=== PATIENT | male | born 1960 | race Caucasian/White ===

== ENCOUNTER 2017-01-01 09:19 | Inpatient (IN) ==
--- NOTE | 2017-01-01 09:43 | Emergency Department Note ---
Disposition Clinical Impression: Rectal bleeding Abdominal pain Qualifiers: Abdominal location: unspecified location Qualified Code(s): R10.9 - Unspecified abdominal pain Disposition: Admitted As Inpatient Condition: Fair Referrals: NONE,PCP [Non-Partnered Physician] - Forms: Work/School Release, ED Satisfaction Letter Time of Disposition: 11:12 Abdominal Pain HPI - General Chief Complaint: ED Abdominal Pain Stated Complaint: Abd Pain N/V/D Rectal Bleeding Time Seen by Provider: 01/01/17 09:27 Source: patient Mode of arrival: ambulatory Limitations: no limitations, age Nursing Notes Reviewed: Yes Vital Signs Reviewed: Yes - History of Present Illness HPI Narrative: 56-year-old male who comes in complaining of crampy lower abdominal pain and bright red blood per rectum. Patient states he had a hard stool last night and following that the stool softened up and he had a large amount of blood. He has no previous history of rectal bleeding. Patient did have a colonoscopy about 4-1 /2 years ago that he reports was negative. He did vomit one time states she doesn't think there was blood in it. Denies dizziness or lightheadedness. Pt Subjective Complaint: abdominal pain Onset (ago): day(s) Consistency: constant Location: diffuse Pain Scale: 8 Quality: cramping Radiation: none Migration to: no migration Improves with: nothing Worsens with: nothing Associated symptoms: Reports: nausea Treatments prior to arrival: none - Related Data Home Medications Medication Instructions Recorded Confirmed Lisinopril [Zestril] 10 mg PO DAILY 01/24/15 01/01/17 Allergies Allergy/AdvReac Type Severity Reaction Status Date / Time No Known Allergies Allergy Verified 01/01/17 09:21 All systems ED: reviewed and negative except as stated. Constitutional: Denies: fever, chills, weakness, weight change Eyes: Denies: eye pain, eye discharge, vision change ENT ED: Denies: ear pain, throat pain, dental pain, hearing loss, epistaxis, congestion, dysphagia Cardiovascular: Denies: chest pain, palpitations, dyspnea on exertion, edema, syncope Respiratory: Denies: cough, dyspnea, wheezes, hemoptysis, stridor Gastrointestinal: Reports: abdominal pain. Denies: nausea, vomiting, diarrhea, constipation, hematemesis, melena, hematochezia Genitourinary: Denies: urgency, dysuria, frequency, hematuria Musculoskeletal: Denies: back pain, neck pain, arthralgia, myalgia Integumentary: Denies: rash, abrasion, lesions Neurological: Denies: headache, weakness, numbness, paresthesias, confusion, abnormal gait, vertigo Psychiatric: Denies: anxiety, depression, suicidal thoughts, homicidal thoughts , auditory hallucinations, visual hallucinations Endocrine: Denies: fatigue Hematological/Lymphatic: Denies: easy bleeding, easy bruising Allergic/Immunologic: Denies: facial swelling, urticaria Abdominal Pain PMH - Past Medical History Medical history: Reports: hypertension Male Surgical History: Reports: other Psychiatric history: Reports: no psych history - Social History Smoking status: Never smoker Alcohol use: Reports: occasionally Drug use: Reports: none Physical Exam - General Limitations: no limitations General appearance: alert - Head Head exam: atraumatic, normocephalic, normal inspection - Eye Eye exam: Present: normal appearance, PERRL, EOMI - ENT ENT exam: normal exam, normal oropharynx, mucous membranes moist - Neck Neck exam: Present: normal inspection, full ROM, trachea midline - Chest Chest inspection: Present: normal inspection, symmetric chest wall rise - Respiratory Respiratory exam: Present: normal lung sounds bilaterally - Cardiovascular Cardiovascular exam: Present: regular rate, normal rhythm, normal heart sounds - Abdominal Exam Abdominal exam: Present: soft, Non-Tender. Absent: tenderness, distention, guarding, rebound, rigidity - Rectal Exam Research Attorney present during exam: Yes Rectal exam: Present: bloody stool - Extremities Exam Extremities exam: Present: normal inspection, full ROM. Absent: tenderness, pedal edema - Expanded Lower Extremity Exam Neurovascular/Tendon exam: Absent: motor deficit, sensory deficit, tendon deficit Gait: observed and normal - Back Exam Back exam: Present: normal inspection, full ROM. Absent: tenderness - Neurological Exam Neurological exam: Present: alert, oriented X3 - Psychiatric Psychiatric exam: Present: normal affect, normal mood - Skin Skin exam: Present: warm, dry, intact, normal color Course - Reevaluation(s) Reevaluation #1: 56-year-old male who comes in with the onset of abdominal pain yesterday with gross blood on several bowel movements since. He should states pain is fairly severe. Workup hemoglobin looks okay rectal exam did show gross blood CT of the abdomen was negative for acute findings. In light of patient's severe pain with fairly large bloody bowel movement warm and go ahead and admit. Time: 10:37 - Consultations Consultation #1: Discussed with Dr. Limon, admit Time: 11:10 Vital Signs Temperature 98.3 F 01/01/17 09:21 Pulse Rate 50 01/01/17 09:21 Respiratory Rate 20 01/01/17 09:21 Blood Pressure 175/83 01/01/17 09:21 O2 Sat by Pulse Oximetry 97 01/01/17 09:21 Temperature 98.3 F 01/01/17 09:21 Pulse Rate 51 01/01/17 10:25 Respiratory Rate 16 01/01/17 10:25 Blood Pressure 170/94 01/01/17 10:25 O2 Sat by Pulse Oximetry 98 01/01/17 10:25 Oxygen Delivery Oxygen Delivery Room Air Abdominal Pain - Lab Data Lab results reviewed: Yes I reviewed the patient's lab results. Result diagrams: 01/01/17 09:35 01/01/17 09:35 Lab Results 01/01/17 01/01/17 01/01/17 Range/Units 09:35 09:35 09:35 WBC 11.8 H (4.3-11.1) K/mcL RBC 6.03 H (4.19-5.50) M/mcL Hgb 16.2 (12.9-16.9) g/dL Hct 49.0 (37.5-50.1) % MCV 81.3 L (83.0-100.0) fL MCH 26.9 L (28.0-33.3) pg MCHC 33.1 (31.6-35.5) g/dL RDW 14.6 H (11.5-14.5) % Plt Count 197 (140-400) K/mcL MPV 10.6 (9.4-12.4) fL Immature Gran % 0.3 (0-4) % Seg Neutrophils % 84.0 % Lymphocytes % 8.8 % Monocytes % 6.3 % Eosinophils % 0.3 % Basophils % 0.3 % Neutrophils # 9.9 H (1.6-8.9) K/mcL Lymphocytes # 1.0 (0.6-4.6) K/mcL Monocytes # 0.7 (0.0-1.3) K/mcL Eosinophils # 0.0 (0.0-0.6) K/mcL Basophils # 0.0 (0.0-0.2) K/mcL PT 11.2 (9.4-12.1) Seconds INR 1.0 APTT 28.9 (26.0-36.0) Seconds Sodium 139 (136-145) mEq/L Potassium 4.5 (3.5-4.5) mEq/L Chloride 106 (98-109) mEq/L Carbon Dioxide 26 (19-29) mEq/L BUN 18 (8-26) mg/dL Creatinine 1.05 (0.72-1.25) mg/dL Est GFR ( Amer) > 60 (> 60) Est GFR (Non-Af Amer) > 60 (> 60) BUN/Creatinine Ratio 17 (6-26) Glucose 133 H (70-99) mg/dL Calculated Osmolality 292 (280-300) Calcium 9.8 (8.6-10.8) mg/dL Total Bilirubin 0.9 (0.2-1.2) mg/dL Direct Bilirubin 0.3 (0.0-0.5) mg/dL Indirect Bilirubin 0.6 (0.0-1.2) mg/dL AST 24 (5-34) Units/L ALT 29 (0-55) Units/L Alkaline Phosphatase 76 (38-126) Units/L Troponin I (0-0.03) ng/mL Serum Total Protein 8.1 (6.0-8.3) g/dL Albumin 4.4 (3.5-5.0) g/dL Globulin 3.7 H (2.4-3.5) g/dL Albumin/Globulin Ratio 1.2 (1.1-2.2) Amylase 48 (25-125) Units/L Lipase < 10 (8-78) Units/L Urine Color (Yellow) Urine Clarity (Clear) Urine pH (5.0-8.0) pH Units Ur Specific [place] (1.010-1.025) Urine Protein (Neg-Trace) mg/dL Urine Glucose (UA) (Normal) mg/dL Urine Ketones (Negative) mg/dL Urine Blood (Negative) Urine Nitrite (Negative) Urine Bilirubin (Negative) Urine Urobilinogen (Normal) mg/dL Ur Leukocyte Esterase (Negative) Ur Culture Indicated? (NO) Stool Occult Blood (Negative) Blood Type Antibody Screen 01/01/17 01/01/17 01/01/17 Range/Units 09:35 09:40 10:03 WBC (4.3-11.1) K/mcL RBC (4.19-5.50) M/mcL Hgb (12.9-16.9) g/dL Hct (37.5-50.1) % MCV (83.0-100.0) fL MCH (28.0-33.3) pg MCHC (31.6-35.5) g/dL RDW (11.5-14.5) % Plt Count (140-400) K/mcL MPV (9.4-12.4) fL Immature Gran % (0-4) % Seg Neutrophils % % Lymphocytes % % Monocytes % % Eosinophils % % Basophils % % Neutrophils # (1.6-8.9) K/mcL Lymphocytes # (0.6-4.6) K/mcL Monocytes # (0.0-1.3) K/mcL Eosinophils # (0.0-0.6) K/mcL Basophils # (0.0-0.2) K/mcL PT (9.4-12.1) Seconds INR APTT (26.0-36.0) Seconds Sodium (136-145) mEq/L Potassium (3.5-4.5) mEq/L Chloride (98-109) mEq/L Carbon Dioxide (19-29) mEq/L BUN (8-26) mg/dL Creatinine (0.72-1.25) mg/dL Est GFR ( Amer) (> 60) Est GFR (Non-Af Amer) (> 60) BUN/Creatinine Ratio (6-26) Glucose (70-99) mg/dL Calculated Osmolality (280-300) Calcium (8.6-10.8) mg/dL Total Bilirubin (0.2-1.2) mg/dL Direct Bilirubin (0.0-0.5) mg/dL Indirect Bilirubin (0.0-1.2) mg/dL AST (5-34) Units/L ALT (0-55) Units/L Alkaline Phosphatase (38-126) Units/L Troponin I 0.01 (0-0.03) ng/mL Serum Total Protein (6.0-8.3) g/dL Albumin (3.5-5.0) g/dL Globulin (2.4-3.5) g/dL Albumin/Globulin Ratio (1.1-2.2) Amylase (25-125) Units/L Lipase (8-78) Units/L Urine Color Yellow (Yellow) Urine Clarity Clear (Clear) Urine pH 5.5 (5.0-8.0) pH Units Ur Specific [place] 1.026 H (1.010-1.025) Urine Protein Negative (Neg-Trace) mg/dL Urine Glucose (UA) Normal (Normal) mg/dL Urine Ketones Negative (Negative) mg/dL Urine Blood Negative (Negative) Urine Nitrite Negative (Negative) Urine Bilirubin Negative (Negative) Urine Urobilinogen Normal (Normal) mg/dL Ur Leukocyte Esterase Negative (Negative) Ur Culture Indicated? NO (NO) Stool Occult Blood Positive A (Negative) Blood Type Antibody Screen 01/01/17 Range/Units 10:20 WBC (4.3-11.1) K/mcL RBC (4.19-5.50) M/mcL Hgb (12.9-16.9) g/dL Hct (37.5-50.1) % MCV (83.0-100.0) fL MCH (28.0-33.3) pg MCHC (31.6-35.5) g/dL RDW (11.5-14.5) % Plt Count (140-400) K/mcL MPV (9.4-12.4) fL Immature Gran % (0-4) % Seg Neutrophils % % Lymphocytes % % Monocytes % % Eosinophils % % Basophils % % Neutrophils # (1.6-8.9) K/mcL Lymphocytes # (0.6-4.6) K/mcL Monocytes # (0.0-1.3) K/mcL Eosinophils # (0.0-0.6) K/mcL Basophils # (0.0-0.2) K/mcL PT (9.4-12.1) Seconds INR APTT (26.0-36.0) Seconds Sodium (136-145) mEq/L Potassium (3.5-4.5) mEq/L Chloride (98-109) mEq/L Carbon Dioxide (19-29) mEq/L BUN (8-26) mg/dL Creatinine (0.72-1.25) mg/dL Est GFR ( Amer) (> 60) Est GFR (Non-Af Amer) (> 60) BUN/Creatinine Ratio (6-26) Glucose (70-99) mg/dL Calculated Osmolality (280-300) Calcium (8.6-10.8) mg/dL Total Bilirubin (0.2-1.2) mg/dL Direct Bilirubin (0.0-0.5) mg/dL Indirect Bilirubin (0.0-1.2) mg/dL AST (5-34) Units/L ALT (0-55) Units/L Alkaline Phosphatase (38-126) Units/L Troponin I (0-0.03) ng/mL Serum Total Protein (6.0-8.3) g/dL Albumin (3.5-5.0) g/dL Globulin (2.4-3.5) g/dL Albumin/Globulin Ratio (1.1-2.2) Amylase (25-125) Units/L Lipase (8-78) Units/L Urine Color (Yellow) Urine Clarity (Clear) Urine pH (5.0-8.0) pH Units Ur Specific [place] (1.010-1.025) Urine Protein (Neg-Trace) mg/dL Urine Glucose (UA) (Normal) mg/dL Urine Ketones (Negative) mg/dL Urine Blood (Negative) Urine Nitrite (Negative) Urine Bilirubin (Negative) Urine Urobilinogen (Normal) mg/dL Ur Leukocyte Esterase (Negative) Ur Culture Indicated? (NO) Stool Occult Blood (Negative) Blood Type O POSITIVE Antibody Screen NEGATIVE - Radiology Data Radiology results reviewed: Yes I reviewed the patient's radiology results. Abdomen/Pelvis CT 01/01/17 09:28 IMPRESSION: 1. No acute abnormality within the abdomen and pelvis. D/ / Wang Issa MD / Wnag Issa MD Interpreting Provider: Wang Issa MD - EKG Data EKG attestation: Yes I reviewed and interpreted this EKG. EKG shows normal: sinus rhythm Rate: bradycardia Rhythm: NSR Interpretation: no acute changes
[2017-01-01 09:46] LABS: Basophils % 0.3 %; Eosinophils % 0.3 %; Hemoglobin 16.2 g/dL (12.9-16.9); Immature Granulocytes % 0.3 % (0-4); Lymphocytes % 8.8 %; Mean Corpuscular HGB Conc 33.1 g/dL (31.6-35.5); Mean Corpuscular Hemoglobin 26.9 pg (28.0-33.3); Mean Corpuscular Volume 81.3 fL (83.0-100.0); Mean Platelet Volume 10.6 fL (9.4-12.4); Monocytes # 0.7 K/mcL (0.0-1.3); Monocytes % 6.3 %; Neutrophils # 9.9 K/mcL (1.6-8.9); Platelet Count 197 K/mcL (140-400); Red Blood Count 6.03 M/mcL (4.19-5.50); Red Cell Distribution Width 14.6 % (11.5-14.5)
[2017-01-01 10:01] LABS: Alanine Aminotransferase 29 Units/L (0-55); Albumin 4.4 g/dL (3.5-5.0); Albumin/Globulin Ratio 1.2 (1.1-2.2); Alkaline Phosphatase 76 Units/L (38-126); Amylase 48 Units/L (25-125); Aspartate Amino Transferase 24 Units/L (5-34); BUN/Creatinine Ratio 17 (6-26); Bilirubin,Direct 0.3 mg/dL (0.0-0.5); Bilirubin,Indirect 0.6 mg/dL (0.0-1.2); Bilirubin,Total 0.9 mg/dL (0.2-1.2); Blood Urea Nitrogen 18 mg/dL (8-26); Calcium 9.8 mg/dL (8.6-10.8); Carbon Dioxide 26 mEq/L (19-29); Chloride 106 mEq/L (98-109); Globulin 3.7 g/dL (2.4-3.5); Glucose 133 mg/dL (70-99); Lipase < 10 Units/L (8-78); Osmolality,Calculated 292 (280-300); Potassium 4.5 mEq/L (3.5-4.5); Sodium 139 mEq/L (136-145); Total Protein 8.1 g/dL (6.0-8.3); eGFR For African Americans > 60 (> 60); eGFR For Non-African Americans > 60 (> 60)
[2017-01-01 10:02] LABS: Prothrombin Time 11.2 Seconds (9.4-12.1)
[2017-01-01 10:05] LABS: Activated Partial Thrombo Time 28.9 Seconds (26.0-36.0)
[2017-01-01 10:23] LABS: Bilirubin,Urine Negative (Negative); Blood,Urine Negative (Negative); Clarity,Urine Clear (Clear); Color,Urine Yellow (Yellow); Glucose,Urine (UA) Normal (Normal); Ketones,Urine Negative (Negative); Leukocyte Esterase,Urine Negative (Negative); Nitrite,Urine Negative (Negative); PH,Urine 5.5 pH Units (5.0-8.0); Protein,Urine Negative (Neg-Trace); Specific Gravity,Urine 1.026 (1.010-1.025); Urobilinogen,Urine Normal (Normal)
[2017-01-01] MEDS ORDERED: *HR* HYDROmorphone (PF) 1 MG/ML SYRINGE IVP ONE (10:36)
[2017-01-01] MEDS ORDERED: Pantoprazole 40 MG VIAL IVP ONE (10:36)
[2017-01-01] MEDS ORDERED: Ondansetron 4 MG/2 ML VIAL IVP ONE (10:36)
[2017-01-01] MEDS ORDERED: Naloxone 0.4 MG/ML INJ IVP PRN (12:37)
--- NOTE | 2017-01-01 12:46 | Internal Med History&Physical ---
Date of Encounter: 01/01/17 Time of Encounter: 12:00 Assessment and Plan (1) Abdominal pain Current visit: Yes Status: Acute No evidence of acute colitis on CAT scan. I do not see an indication for acute antibiotics. I do wonder if patient may have underlying inflammatory bowel disease based on the chronicity of his intermittent symptoms. We will await GI evaluation. Qualifiers: Abdominal location: unspecified location Qualified Code(s): R10.9 - Unspecified abdominal pain (2) Lower GI bleed Current visit: Yes Status: Acute Primary differential to be ischemic colitis. I do not suspect infection. As mentioned above, may have a chronic inflammatory bowel disease as well. We will await GI evaluation. Patient's hemoglobin is stable. We will continue to monitor frequently. (3) Hypertension Current visit: Yes Status: Acute Qualifiers: Hypertension type: essential hypertension Qualified Code(s): I10 - Essential (primary) hypertension (4) Hypertension Current visit: Yes Status: Acute On lisinopril. Use IV hydralazine when necessary, while nothing by mouth. Qualifiers: Hypertension type: essential hypertension Qualified Code(s): I10 - Essential (primary) hypertension Internal Medicine - H&P: HPI Admitted From: Emergency Dept Plans for Post Hospital Care: Home History of present illness: Mr. Rios is a 56 year old male with a past medical history only significant for hypertension. He was in his usual state of health when he awoke around midnight last night complaining of severe 8-9 out of 10 mid abdominal cramping pain. The pain has remained somewhat of a constant ache now, but waxes and wanes in severity. He said he went to the bathroom and vomited food times one, then had a few hard bowel movements followed by 2 numerous to count liquid stools, with bright red blood. He has never had similar blood in his stool. He does have a history of periodic abdominal cramps occurring almost on a monthly basis but never to this severity and they usually resolve on her own. Patient denies any fevers or chills. No recent travel. No ill contacts. No new medications. He does not use NSAIDs but occasionally will take an Excedrin. He had a colonoscopy at age 17 but has not had one since. In the emergency room he was hemodynamically stable mildly hypertensive with a blood pressure 175/83. On exam he appeared uncomfortable with hands over his mid abdomen. He otherwise was mildly diaphoretic but was stable. Labs showed a white count of 11.8, hemoglobin 16.2. INR was normal at 1.0. BUN/creatinine and creatinine of [address] abdomen and pelvis with IV contrast scan was negative for acute process. Patient was admitted for further workup of lower GI bleeding. Past Med Surg Social Fam HX - Past Medical History Medical history: hypertension Psychiatric history: no psych history - Past Surgical History Surgical History: non-contributory, arthroscopy - Social History Smoking Status: Never smoker Smokeless Tobacco Status: No Alcohol use: occasionally Drug use: none Occupational status: employed Current living situation: Home - Independent Activity Level: Independent ambulation Recent Out of Country Travel Within the Last 8 Weeks: No Exposure or Possible Exposure to Illness During Travel: No Internal Medicine - H&P: Meds Lisinopril [Zestril] 10 mg PO DAILY 01/24/15 [History] 3 Allergy/AdvReac Type Severity Reaction Status Date / Time No Known Allergies Allergy Verified 01/01/17 09:21 All Systems PM: A 10-system review of systems was performed and is negative for pertinent findings except as documented above in the HPI. - Constitutional Vitals: Temp Pulse Resp BP Pulse Ox 98.3 F 51 16 151/92 98 01/01/17 09:21 01/01/17 10:25 01/01/17 12:16 01/01/17 12:16 01/01/17 10:25 General appearance: Present: mild distress, A&O X 3, pleasant - Head Head exam: Present: atraumatic, normocephalic - Eye Eye exam: Present: PERRL, conjuntiva pink, sclera anicteric Pupils: Present: PERRL - Neck Neck exam general surgery: Present: supple, trachea midline. Absent: lymphadenopathy - Respiratory Respiratory exam: Present: CTAB. Absent: accessory muscle use, rales, rhonchi, wheezes - Cardiovascular Cardiovascular exam: Present: RRR, +S1, +S2. Absent: diastolic murmur, gallop, rubs, systolic murmur - GI/Abdominal GI/Abdominal exam: Present: normal bowel sounds, soft, tenderness (Diffuse Tenderness in the mid abdomen. No rebound or guarding.), no peritoneal signs. Absent: distended - Extremities Exam Extremities exam: Present: warm, radial pulses palpable and symmetrical. Absent : calf tenderness, cyanotic, pedal edema - Neurological Exam Neurological exam: Present: CN II-XII intact, oriented X3, no focal deficits. Absent: pronater drift, facial droop, speech deficit - Skin Skin exam: Present: dry, intact Internal Med - H&P Results - Labs CBC & Chem 7: 01/01/17 09:35 01/01/17 09:35 - VTE Reasons for not Prescribing Prophylaxis: Treatment not Indicated - Low risk for VTE
[2017-01-01] MEDS: 0.9 % Sodium Chloride 1,000 ML IVC SCH ×2 (13:14→23:00)
[2017-01-01] MEDS: *HR* HYDROmorphone (PF) 1 MG/ML SYRINGE IVP PRN ×3 (13:15→23:39)
--- NOTE | 2017-01-01 15:07 | Gastroenterology Consult Note ---
<Yvette Small - Last Filed: 01/01/17 16:12> Date of Encounter: 01/01/17 Time of Encounter: 15:04 - Assessment and plan (1) Abdominal pain Current Visit: Yes Status: Acute Assessment and plan: CT abdomen/pelvis showed no acute abnormality. patient admits to one episode of diarrhea since yesterday. no recent travel or antibiotic use. likely ischemic colitis based on history. Plan: continue with supportive care. GI panel to rule out infectious causes. IVF pain control recommend empiric antibiotic treatment. outpatient colonoscopy in 6-8 weeks. Qualifiers: Abdominal location: unspecified location Qualified Code(s): R10.9 - Unspecified abdominal pain - Time Spent With Patient Total time spent is greater than 50% in coordination of care (as documented) at patient's floor/unit and/or counseling patient: GI History of Present Illness - Data of Consult Consult date: 01/01/17 Requesting Physician: Jessi Andrews MD - Consult Narrative Reason for consult: possible GI bleed. History of present illness: Mr. Rios is a 56 year old male with PMHx of HTN. patient arrived with CC of severe abdominal cramping and pain that woke him up at night. Pain is- 8-9/10 and waxes and wanes. He had one episode of vomiting, but cannot recall if there was blood in his vomit. He had multiple episodes of bright red blood in his stool since last night, and this happened every time he had a bowel movement. He denies recent antibiotic use, denies recent recent travel. he admits to chills, denies fever, chest pain, denies shortness of breath, denies dark stools. his last colonoscopy was five years ago. Past Med Surg Social Fam HX - Past Medical History Medical history: hypertension Psychiatric history: no psych history - Past Surgical History Surgical History: non-contributory, arthroscopy - Social History Smoking Status: Never smoker Smokeless Tobacco Status: No Alcohol use: occasionally Drug use: none All systems PM: reviewed and no additional remarkable complaints except as stated - Constitutional Vitals: Temp Pulse Resp BP Pulse Ox 98.3 F 51 16 151/92 98 01/01/17 09:21 01/01/17 10:25 01/01/17 12:16 01/01/17 12:16 01/01/17 10:25 - Head Head exam: Present: atraumatic, normocephalic - Neck Neck exam general surgery: Present: supple, trachea midline - Respiratory Respiratory exam: Present: CTAB - Cardiovascular Cardiovascular exam: Present: RRR, +S1, +S2 - GI/Abdominal GI/Abdominal exam: Present: normal bowel sounds, soft. Absent: distended, tenderness - Extremities Exam Extremities exam: Absent: cyanotic, pedal edema - Neurological Exam Neurological exam: Present: alert, oriented X3, no focal deficits - Skin Skin exam: Present: intact Results - Labs CBC & Chem 7: 01/01/17 09:35 01/01/17 09:35 Labs: Last Result Calcium 9.8 mg/dL (8.6-10.8) 01/01/17 09:35 Troponin I 0.01 ng/mL (0-0.03) 01/01/17 09:35 Stool Occult Blood Positive (Negative) A 01/01/17 09:40 Entire Visit Hgb 16.2 g/dL (12.9-16.9) 01/01/17 09:35 Hct 49.0 % (37.5-50.1) 01/01/17 09:35 PT 11.2 Seconds (9.4-12.1) 01/01/17 09:35 Total Bilirubin 0.9 mg/dL (0.2-1.2) 01/01/17 09:35 AST 24 Units/L (5-34) 01/01/17 09:35 ALT 29 Units/L (0-55) 01/01/17 09:35 Amylase 48 Units/L (25-125) 01/01/17 09:35 Lipase < 10 Units/L (8-78) 01/01/17 09:35 - ABG ABG results: PT/INR, D-dimer PT 11.2 Seconds (9.4-12.1) 01/01/17 09:35 Consult Discharge Plan - Plan Referrals: Parviz Gaviria MD [Primary Care Provider] - <Maricruz Deras - Last Filed: 01/01/17 19:01> Date of Encounter: 01/01/17 Time of Encounter: 18:30 - Time Spent With Patient Total time spent is greater than 50% in coordination of care (as documented) at patient's floor/unit and/or counseling patient: GI History of Present Illness - Data of Consult Requesting Physician: Jessi Andrews MD - Consult Narrative History of present illness: Mr. Rios is a 56 year old male - Constitutional Vitals: Temp Pulse Resp BP Pulse Ox 98.3 F 51 16 151/92 98 01/01/17 09:21 01/01/17 10:25 01/01/17 12:16 01/01/17 12:16 01/01/17 10:25 Results - Labs CBC & Chem 7: 01/01/17 09:35 01/01/17 09:35 Labs: Last Result Calcium 9.8 mg/dL (8.6-10.8) 01/01/17 09:35 Troponin I 0.01 ng/mL (0-0.03) 01/01/17 09:35 Stool Occult Blood Positive (Negative) A 01/01/17 09:40 Entire Visit Hgb 16.2 g/dL (12.9-16.9) 01/01/17 09:35 Hct 49.0 % (37.5-50.1) 01/01/17 09:35 PT 11.2 Seconds (9.4-12.1) 01/01/17 09:35 Total Bilirubin 0.9 mg/dL (0.2-1.2) 01/01/17 09:35 AST 24 Units/L (5-34) 01/01/17 09:35 ALT 29 Units/L (0-55) 01/01/17 09:35 Amylase 48 Units/L (25-125) 01/01/17 09:35 Lipase < 10 Units/L (8-78) 01/01/17 09:35 - ABG ABG results: PT/INR, D-dimer PT 11.2 Seconds (9.4-12.1) 01/01/17 09:35 - Attending Attestation I examined this patient and my medical decision-making was reviewed with the Resident Physician. I agree with the documented findings, disposition and treatment plan as described except to the extent set forth below. Patient with possible ischemic colitis with sudden onset abdominal pain with the bloody bowel movement. Recommendation: IV fluid empiric antibiotics. Stool studies. Colonoscopy in 6-8 weeks as an outpatient
[2017-01-01 19:16] LABS: Hematocrit 44.3 % (37.5-50.1); Hemoglobin 14.8 g/dL (12.9-16.9); Mean Corpuscular HGB Conc 33.4 g/dL (31.6-35.5); Mean Corpuscular Hemoglobin 27.1 pg (28.0-33.3); Mean Corpuscular Volume 81.1 fL (83.0-100.0); Mean Platelet Volume 10.6 fL (9.4-12.4); Platelet Count 190 K/mcL (140-400); Red Blood Count 5.46 M/mcL (4.19-5.50); Red Cell Distribution Width 14.3 % (11.5-14.5)
[2017-01-01 21:41] LABS: Adenovirus F 40/41 PCR Not detected (Not detect); C.difficile Toxin A/B by PCR Not detected (Not detect); Campylobacter by PCR Not detected (Not detect); Cryptosporidium by PCR Not detected (Not detect); Cyclospora cayetanensis PCR Not detected (Not detect); E. coli O157 by PCR Not detected (Not detect); Entamoeba histolytica PCR Not detected (Not detect); Enteroaggregative E.coli(EAEC) Not detected (Not detect); Enteropathogenic E.coli(EPEC) Not detected (Not detect); Enterotoxigenic E.coli (ETEC) Not detected (Not detect); Giardia lamblia PCR Not detected (Not detect); Plesiomonas shigelloides PCR Not detected (Not detect); Salmonella PCR Not detected (Not detect); Shig/EnteroinvasiveE coli EIEC Not detected (Not detect); Shigalike tox-prod E coli STEC Not detected (Not detect); Vibrio PCR Not detected (Not detect); Vibrio cholerae PCR Not detected (Not detect); Yersinia enterocolitica PCR Not detected (Not detect)
[2017-01-01 21:42] LABS: Astrovirus PCR Not detected (Not detect); Norovirus GI/GII PCR Not detected (Not detect); Rotavirus A PCR Not detected (Not detect); Sapovirus PCR Not detected (Not detect)
[2017-01-01] MEDS: Ondansetron 4 MG/2 ML VIAL IVP PRN (23:39)
[2017-01-01] MEDS: MetroNIDAZOLE 500 MG/100 ML 500 MG/100 ML BAG IVPB SCH (23:39)
[2017-01-02 02:18] LABS: Hematocrit 41.9 % (37.5-50.1); Hemoglobin 13.8 g/dL (12.9-16.9); Mean Corpuscular HGB Conc 32.9 g/dL (31.6-35.5); Mean Corpuscular Hemoglobin 26.9 pg (28.0-33.3); Mean Corpuscular Volume 81.7 fL (83.0-100.0); Mean Platelet Volume 11.1 fL (9.4-12.4); Platelet Count 182 K/mcL (140-400); Red Blood Count 5.13 M/mcL (4.19-5.50); Red Cell Distribution Width 14.4 % (11.5-14.5)
[2017-01-02] MEDS ORDERED: Acetaminophen 325 MG TABLET PO PRN (05:54)
[2017-01-02] MEDS: *HR* HYDROmorphone (PF) 1 MG/ML SYRINGE IVP PRN ×3 (05:55→14:12)
[2017-01-02] MEDS: Ondansetron 4 MG/2 ML VIAL IVP PRN ×3 (05:56→16:16)
[2017-01-02] MEDS: MetroNIDAZOLE 500 MG/100 ML 500 MG/100 ML BAG IVPB SCH ×2 (07:58→16:16)
[2017-01-02] MEDS: 0.9 % Sodium Chloride 1,000 ML IVC SCH ×2 (07:58→17:39)
[2017-01-02 08:12] LABS: Hematocrit 40.5 % (37.5-50.1); Hemoglobin 13.5 g/dL (12.9-16.9); Mean Corpuscular HGB Conc 33.3 g/dL (31.6-35.5); Mean Corpuscular Hemoglobin 27.3 pg (28.0-33.3); Mean Corpuscular Volume 81.8 fL (83.0-100.0); Mean Platelet Volume 11.1 fL (9.4-12.4); Platelet Count 168 K/mcL (140-400); Red Blood Count 4.95 M/mcL (4.19-5.50); Red Cell Distribution Width 14.6 % (11.5-14.5)
[2017-01-02 13:33] LABS: Hematocrit 39.8 % (37.5-50.1); Hemoglobin 12.8 g/dL (12.9-16.9); Mean Corpuscular HGB Conc 32.2 g/dL (31.6-35.5); Mean Corpuscular Hemoglobin 26.2 pg (28.0-33.3); Mean Corpuscular Volume 81.4 fL (83.0-100.0); Mean Platelet Volume 10.2 fL (9.4-12.4); Platelet Count 165 K/mcL (140-400); Red Blood Count 4.89 M/mcL (4.19-5.50); Red Cell Distribution Width 14.5 % (11.5-14.5)
--- NOTE | 2017-01-02 17:10 | Internal Med Progress Note ---
Date of Encounter: 01/02/17 Time of Encounter: 12:20 - Assessment and plan (1) Abdominal pain Current Visit: Yes Status: Acute Assessment and plan: Continue management per GI recommendations for possible ischemic colitis. IV antibiotics. Diet as tolerated. Pain control. IV fluids. GI panel negative for any infection. High risk for complications due to use of intravenous narcotic medications Qualifiers: Abdominal location: lower abdomen, unspecified Qualified Code(s): R10.30 - Lower abdominal pain, unspecified (2) Lower GI bleed Current Visit: Yes Status: Acute Assessment and plan: Fecal Hemoccult positive but patient's hemoglobin levels have remained mostly stable. We will monitor blood counts. GI recommends colonoscopy as outpatient in 6-8 weeks. (3) Hypertension Current Visit: Yes Status: Chronic Assessment and plan: Intermittently elevated. Likely due to pain. Continue lisinopril. On hydralazine as needed. Will monitor and adjust antihypertensives accordingly. Qualifiers: Hypertension type: essential hypertension Qualified Code(s): I10 - Essential (primary) hypertension - Subjective Interval history: Patient continues to have intermittent abdominal pain although this is much better compared to his initial presentation. Tolerating full liquid diet. No new episodes of nausea or vomiting. No hematochezia. - Constitutional Vitals: Temp Pulse Resp BP Pulse Ox 98.1 F 65 15 143/76 96 01/02/17 15:10 01/02/17 15:10 01/02/17 15:10 01/02/17 15:10 01/02/17 15:10 General appearance: Present: mild distress, A&O X 3, pleasant, answers questions appropriately - Neck Neck exam general surgery: Present: supple, trachea midline. Absent: lymphadenopathy - Respiratory Respiratory exam: Present: CTAB. Absent: accessory muscle use, rales, rhonchi, wheezes - Cardiovascular Cardiovascular exam: Present: RRR, +S1, +S2. Absent: diastolic murmur, gallop, rubs, systolic murmur - GI/Abdominal GI/Abdominal exam: Present: normal bowel sounds, soft, tenderness (Lower abdomen ), no peritoneal signs. Absent: distended - Extremities Exam Extremities exam: Present: warm, radial pulses palpable and symmetrical. Absent : calf tenderness, cyanotic, pedal edema - Skin Skin exam: Present: dry, intact Internal Medicine: Result - Labs CBC & Chem 7: 01/02/17 13:16 01/01/17 09:35 Labs: Short CBC 01/01/17 01/02/17 01/02/17 Range/Units 18:48 00:51 07:14 WBC 14.1 H 11.8 H 11.5 H (4.3-11.1) K/mcL Hgb 14.8 13.8 13.5 (12.9-16.9) g/dL Hct 44.3 41.9 40.5 (37.5-50.1) % Plt Count 190 182 168 (140-400) K/mcL 01/02/17 Range/Units 13:16 WBC 9.4 (4.3-11.1) K/mcL Hgb 12.8 L (12.9-16.9) g/dL Hct 39.8 (37.5-50.1) % Plt Count 165 (140-400) K/mcL - ABG Interpretation ABG results: PT/INR, D-dimer PT 11.2 Seconds (9.4-12.1) 01/01/17 09:35 - VTE Reasons for not Prescribing Prophylaxis: Treatment not Indicated - Low risk for VTE Consult Discharge Plan - Plan Referrals: Parviz Gaviria MD [Primary Care Provider] -
[2017-01-02] MEDS: *HR* HYDROcodone/Acet 5/325 mg TABLET PO PRN (18:15)
--- NOTE | 2017-01-02 18:30 | Electrocardiograph Report ---
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
[2017-01-03] MEDS: MetroNIDAZOLE 500 MG/100 ML 500 MG/100 ML BAG IVPB SCH ×2 (00:28→09:20)
[2017-01-03] MEDS: 0.9 % Sodium Chloride 1,000 ML IVC SCH ×2 (03:55→09:23)
[2017-01-03] MEDS: *HR* HYDROcodone/Acet 5/325 mg TABLET PO PRN (09:29)
[2017-01-03 10:58] VITALS: BP 141/73
--- NOTE | 2017-01-03 12:27 | Discharge Summary ---
Date of Encounter: 01/03/17 Time of Encounter: 12:24 - Discharge Diagnosis (1) Abdominal pain Priority: Primary Status: Acute Qualifiers: Abdominal location: lower abdomen, unspecified Qualified Code(s): R10.30 - Lower abdominal pain, unspecified (2) Lower GI bleed Priority: Secondary Status: Acute (3) Hypertension Priority: Secondary Status: Chronic Qualifiers: Hypertension type: essential hypertension Qualified Code(s): I10 - Essential (primary) hypertension - Discharge Medications Prescriptions: Carvedilol 3.125 mg PO BID #30 tab Ciprofloxacin [Cipro] 500 mg PO BID #16 tablet metroNIDAZOLE [Flagyl] 500 mg PO TID #24 tablet Home Medications: Lisinopril [Zestril] 10 mg PO DAILY 01/24/15 [History] Acetaminophen [Tylenol] 650 mg PO Q6HR PRN tablet 01/03/17 [Rx] Carvedilol 3.125 mg PO BID #30 tab 01/03/17 [Rx] Ciprofloxacin [Cipro] 500 mg PO BID #16 tablet 01/03/17 [Rx] metroNIDAZOLE [Flagyl] 500 mg PO TID #24 tablet 01/03/17 [Rx] Allergies/Adverse Reactions: 3 Allergy/AdvReac Type Severity Reaction Status Date / Time No Known Allergies Allergy Verified 01/01/17 09:21 Date of admission: 01/01/17 17:04 Primary care physician: Parviz Gaviria MD Consults: 01/01/17 12:40 Consult to Gastroenterology [CONS] Routine Consulting Provider: Gastroenterology Courtney Reason for Consult: LGIB Time Notified: 12:40 Call Completed: Yes Discharging clinician: Maria Elena Ferrari Anticipated date of discharge: 01/03/17 - Patient Status Disposition: Home, Self-Care Condition: Good Functional capacity at discharge: independent ambulation Overall status at discharge: patient is progressing back to baseline - Discharge Instructions Follow Up With: Lynn Fofana CNP [Advanced Practice Nurse] - 01/12/17 1:45 pm Maricruz Deras MD [Partnered Physician] - (2 weeks) - Diet and Activity Activity: increase activity as tolerated Diet: low fat, low cholesterol, low salt diet, other (advance diet as tolerated) Hospital course: Mr. Rios is a 56 year old male patient with a history of hypertension was admitted here with acute abdominal pain along with blood-tinged stools. He was evaluated in the ER and underwent CT scan of the abdomen and pelvis was done showing any acute abnormalities. GI was consulted and per their recommendations patient was admitted here for possible acute ischemic colitis. He was treated with IV antibiotics. Gastroenterology evaluated patient and recommended patient undergo colonoscopy as outpatient in 6 weeks. Presently, patient is tolerating diet well. His pain has been better controlled. He will be discharged home on oral antibiotics. He still has some blood-tinged stools but improving. His blood counts have been more or less stable here. He will follow up with GI as outpatient. He will also get CBC checked within the next week to make sure that his blood counts have remained stable. He is advised to return to the ER if he develops any further episodes of abdominal pain or GI bleed. - Time Spent with Patient Total time spent providing and/or coordinating discharge services: Less than 30 minutes (25 min) - Constitutional Vitals: Temp Pulse Resp BP Pulse Ox 98.0 F 72 16 141/73 95 01/03/17 10:55 01/03/17 10:55 01/03/17 10:55 01/03/17 10:55 01/03/17 10:55 General appearance: Present: mild distress, A&O X 3, pleasant, answers questions appropriately - Respiratory Respiratory exam: Present: CTAB. Absent: accessory muscle use, rales, rhonchi, wheezes - Cardiovascular Cardiovascular exam: Present: RRR, +S1, +S2. Absent: diastolic murmur, gallop, rubs, systolic murmur - GI/Abdominal GI/Abdominal exam: Present: normal bowel sounds, soft, tenderness (lower abdominal), no peritoneal signs. Absent: distended - Extremities Exam Extremities exam: Present: warm, radial pulses palpable and symmetrical. Absent : calf tenderness, cyanotic, pedal edema - Skin Skin exam: Present: dry, intact - VTE Reasons for not Prescribing Prophylaxis: Treatment not Indicated - Low risk for VTE
[2017-01-03] MEDS ORDERED: FLUARIX QUAD 2017-18 36MOS UP/PF 0.5 ML SYRINGE IM ONE (12:52)
== END 2017-01-03 13:15 | disposition home or self-care (01) | DRG 395 ==
LOC: 3ANU 09:19 → EMEROO 09:19 → 3ANU 13:04 → SUATTDRO 17:04
PROVIDERS: ADMIT Internal Medicine; ATTEND Internal Medicine